=== PATIENT | female | born 1995 | race African-American/Black ===

== ENCOUNTER 2017-10-18 16:15 | Emergency (ER) | payer OTHER ==
[~2017-10-18] VITALS: Ht 175.3 cm; Wt 77.3 kg
[2017-10-18] MEDS ORDERED: LIDOCAINE HCL 2%/EPI 1:200,000/PF 20 ML VIAL INJ ONE (18:00)
[2017-10-18 19:24] VITALS: BP 121/80
== END 2017-10-18 19:29 | disposition home or self-care (01) ==
LOC: EMS 16:21
DX: S81.812A Laceration without foreign body, left lower leg, initial encounter (principal); W45.8XXA Other foreign body or object entering through skin, initial encounter; Y93.89 Activity, other specified; Y92.89 Other specified places as the place of occurrence of the external cause; Y99.8 Other external cause status
CPT/HCPCS: 12002; 99283; X6474